=== PATIENT | female | born 1985 | race Caucasian/White ===

== ENCOUNTER 2017-01-23 16:32 | Inpatient (IN) | payer SELFPAY ==
--- NOTE | ~2017-01-23 | PA ---
Unit #: [id number] #: [id number] Patient: NITISH AUSTIN [id number] [facility] [address] [place] [address] [id number] [place] MR#: [id number] NAME: NITISH AUSTIN ROOM: P173 Age: 32 Sex: F Admission Date: 01/23/2017 : 1985 Date of Assessment: 01/24/2017 Attending Physician: Kirsten Pantoja M.D. Admitting Physician: Kirsten Pantoja M.D. Primary Care Physician: Primary Care Physician No PSYCHIATRIC ASSESSMENT DATE OF SERVICE 01/24/2017. IDENTIFYING DATA Ms. Austin is a 31-year-old single white female who is a resident of [place], [place] and was self-referred to the hospital. CHIEF COMPLAINT "I left last month. My medicines are not working." HISTORY OF PRESENT ILLNESS Ms. Austin is a 31-year-old single white female with history of multiple inpatient hospitalization and once again brought herself back to the hospital stating that she left last month and her medicines are not working and "I tried to see my psychiatrist for an emergency." He would not see me due to not having my discharge paperwork. "I tried to see him for suicidal ideations and feeling like I was going to harm myself, but he refused to see me. I'm not sleeping, not eating, not doing well and have been drinking more lately usually Tequila a drink last used today, 2 shots of drinking daily for about 2 to 3 mixed drinks last night. I have been increasing my Klonopin, now using 3 to 4 pills a day and nothing is working to sleep or feel better. I drove myself here today. I got fired from my job and was admitted here." She reports that she gotten another job through, though an issue, is doing fine financially. "I'm currently having a plan to kill myself by overdosing on all of my medications for past week. Things have been getting worse and worse, and I'm trying to see things would get better, but they just are not." She has history of very manipulative behavior and substance abuse, and has been drinking and then has been getting Ambien and Klonopin from the other provider and it appears that she has no issues, but she has been going to her outpatient provider, Scott Moeller and has been paying leon to get prescriptions of Ambien and Klonopin, and has been abusing those and mixing them with alcohol and then she comes to the hospital frequently. When she comes to the hospital, she does not want to leave, when she leaves, she does not follow up with any treatment recommendation including followup as she was strongly encouraged to follow up and she does not follow up and then relapses and has been using those and with excuses once again, she comes in stating that she had the medicines are not working, though, the fact that she has not really active in any treatment program, and rather has been drinking and has relapsed soon after getting out of the hospital and as such, it is not clear what her real motivation expectation from treatment. Unit #: [id number] #: [id number] Patient: NITISH AUSTIN SUBSTANCE ABUSE HISTORY The patient reports history of substance abuse including alcohol and benzodiazepines and cannabis. PAST PSYCHIATRIC HISTORY The patient has had history of multiple inpatient psychiatric hospitalizations including being at [facility], at [facility] and has been seeing Dr. Scott Moeller on an outpatient basis and review of the medical records indicate that she has been getting prescriptions of Klonopin and Ambien, and has been abusing both of those prescriptions. PAST MEDICAL HISTORY No acute or chronic medical illnesses. ALLERGIES No known medication allergies. PERSONAL AND SOCIAL HISTORY A 31-year-old white female who reports that she is single and employed, and lives by herself and has fairly decent social support system. MENTAL STATUS EXAMINATION Young white female who was casually dressed with fair personal hygiene, appears to be in no acute distress or discomfort. She was awake and alert on interaction with intact orientation. Her mood was anxious and depressed with a congruent affect. Her speech was slow and goal directed. She reports having suicidal ideations, but denies any homicidal ideations, and also denies any auditory or visual hallucinations. Her insight and judgment remain significantly impaired. DIAGNOSTIC IMPRESSION Psychiatric: Major depressive disorder, recurrent, moderate, without psychotic features; alcohol dependence, moderate and acute withdrawal; benzodiazepine dependence, moderate. Medical: None. Stressors: Moderate psychosocial stressors. TREATMENT PLAN 1. The patient has presented with history of mood disorder and has been decompensating and will need inpatient hospitalization for safety and stabilization. We will start her back on her home medications. We will adjust the medications and monitor response. 2. Supportive therapy was provided to the patient. 3. Safe, structured, and nourishing environment will be provided. ESTIMATED LENGTH OF STAY 5 to 7 days. ABILITY TO HELP SELF Limited. WILLINGNESS TO HELP SELF The patient appears to be willing to help self. STRENGTHS 1. Communicative. 2. Cooperative. Unit #: [id number] #: [id number] Patient: NITISH AUSTIN PROBLEMS 1. Chronic dysphoric symptoms. 2. Poor social support system. DISCHARGE CRITERIA This will be contingent upon the patient's ability to show resolution of her depression and anxiety and her ability to stay safe to herself, particularly after discharge from the hospital. Dictated by... Kirsten Pantoja M.D. JUANA/johana TD: 01/25/2017 00:16 JOB #: [id number] PSYCHIATRIC ASSESSMENT X Kirsten Pantoja MD X PSYCHIATRIC ASSESSMENT
--- NOTE | ~2017-01-23 | PN ---
Unit #: [id number] #: [id number] Patient: NITISH AUSTIN [id number] [facility] [address] [place] [address] [id number] I MR#: [id number] NAME: NITISH AUSTIN ROOM: 73 Age: 32 Sex: F Admission Date: 01/23/2017 : 1985 Attending Physician: Kirsten Pantoja M.D. Admitting Physician: Kirsten Pantoja M.D. Primary Care Physician: Primary Care Physician Bailey ROSENTHAL PROGRESS NOTES DATE 01/25/2017 DISCUSSION Ms. Austin is a 32-year-old white female who was seen today and chart was reviewed and case was discussed with the staff. She appears to be doing fairly well and has been calm and cooperative and does not appear to be in any acute distress or discomfort and did not voice any concerns or complaints. MENTAL STATUS EXAMINATION Young white female who was casually dressed with fair personal hygiene and appears to be in no acute distress or discomfort. She was awake and alert on interaction with intact orientation. Her mood was anxious with congruent affect. She denies any suicidal or homicidal ideations. Her insight and judgement remains slightly impaired. TREATMENT PLAN 1. Will continue on current medications and treatment protocol and will monitor her response and make further adjustments as needed. 2. Will continue to follow up. Dictated by... Eduar Moses/sarah TD: 01/26/2017 15:04 JOB #: [id number] [facility] PROGRESS NOTES X Kirsten Pantoja MD PROGRESS NOTE
--- NOTE | ~2017-01-23 | HP ---
Unit #: [id number] #: [id number] Patient: ASYA AUSTIN [id number] [facility] [address] [place] [address] [id number] I MR#: [id number] NAME: ASYA AUSTIN ROOM: 73 Age: 32 Sex: F Admission Date: 01/23/2017 : 1985 Attending Physician: Kirsten Pantoja M.D. Admitting Physician: Kirsten Pantoja M.D. Primary Care Physician: Primary Care Physician No HISTORY AND PHYSICAL Asya is a 32 year old admitted to [facility] because of her continued abuse of alcohol. The patient was seen and H and P dated 01/04/17 was reviewed. This is current. No changes. Please see H and P dated 01/04/17. Dictated by... Rachel Austin P.A.-C. for Eduar Jensen/sarah TD: 01/24/2017 16:30 JOB #: [id number] HISTORY AND PHYSICAL X Rachel Austin HISTORY AND PHYSICAL
--- NOTE | ~2017-01-23 | DS ---
Unit #: [id number] #: [id number] [facility]USTIN [id number] [facility] [address] [place] [address] [id number] I MR#: [id number] NAME: NITISH AUSTIN ROOM: 73 Age: 32 Sex: F Admission Date: 01/23/2017 : 1985 Discharge Date: 01/26/2017 Attending Physician: Kirsten Pantoja M.D. Primary Care Physician: Primary Care Physician No DISCHARGE SUMMARY IDENTIFYING DATA Ms. Austin is a 31-year-old, single, white female, who is a resident of [place], [place] and was self-referred to the hospital, who is known to us from previous encounter, and has a history of substance abuse and mood disorder. DISCHARGE DIAGNOSES Psychiatric: 1. Major depressive disorder, recurrent, moderate, without psychotic features. 2. Alcohol dependence, moderate and acute withdrawals. 3. Benzodiazepine dependence, moderate. Medical: None. Stressors: Moderate psychosocial stressors. HISTORY OF PRESENT ILLNESS Please see initial psychiatric evaluation for details. PAST PSYCHIATRIC HISTORY Please see initial psychiatric evaluation for details. PAST MEDICAL HISTORY Please see initial psychiatric evaluation for details. HOSPITAL COURSE The [facility] and was oriented to the hospital environment. Routine p.r.n. medications were initiated, and she was started on the alcohol detox protocol. However, the patient was once again seen to be very manipulative and giving different stories as she refused to fill her prescription up after discharge from the hospital and refused to come to the outpatient treatment program and stated that she was trying to get back with Dr. Scott Moeller, who has been prescribing her Klonopin and Ambien, both of which she has been abusing mixing it with the alcohol and yet refusing to take her antidepressant medication and then keeps on complaining about depression and having suicidal thoughts; however, she stated that Dr. Moeller would not see her because they did not have [facility], which did not make much sense to me, but she was giving me that excuse and reason about her noncompliance with outpatient psychiatric followup; however, the patient's Ambien and Klonopin were both discontinued primarily because of her abuse of those medication, history of substance abuse and her mixing them with alcohol and alcohol detox protocol was initiated. She was detoxed from Klonopin Unit #: [id number] #: [id number] Patient: NORMAN,NITISH and alcohol and she was told that we will make sure the discharge summary and notes are available for Dr. Scott Moeller if that is the reason that she was not able to follow up with, also worth noticing that the patient has no insurance and comes to the hospital on self pay and when I asked how she gets her outpatient visit with Dr. Moeller covered, she tells me that she pays leon, but then she refuses to follow up for outpatient psychiatric treatment. She is not getting any treatment for her depression as she is not taking a mood stabilizer or antidepressant, but yet keeps on complaining insisting about her depression and when I initiated the medication during her previous hospitalization here, she did not bother even to get those prescription filled and decided to use alcohol and mixed it with Klonopin and Ambien after being discharged from the hospital; however, at this point, she is clean and detoxed from all of those controlled substances including Ambien and Klonopin as well as alcohol and will be discharged from the hospital and the patient would like to follow up with Dr. Scott Moeller only we would expect that the patient would not be exposed back to those narcotics and rather be treated for underlying mental illness after proper evaluation. DISCHARGE MEDICATIONS None. DISCHARGE CONDITION Stable. PROGNOSIS Guarded. Dictated by... Eduar Moses/johana TD: 01/26/2017 06:56 JOB #: [id number] CC: Scott Moeller M.D. DISCHARGE SUMMARY X Kirsten Pantoja MD X DISCHARGE SUMMARY
[2017-01-24 09:39] LABS: BASOPHIL# 0.1 X10e3 (0-0.3); EOSINOPHIL# 0.3 X10e3 (0-0.7); EOSINOPHIL% 4.3 % (0.0-7.0); HEMATOCRIT 37.1 % (35.0-45.0); HEMOGLOBIN 12.1 gm/dL (12.0-16.0); LYMPHOCYTE# 1.5 X10e3 (1.0-3.5); LYMPHOCYTE% 23.9 % (17.0-45.0); MEAN CELL VOLUME 80.9 FL (83-96); MEAN CORPUSCULAR HEMOGLOBIN 26.3 PG (28-34); MEAN CORPUSCULAR HGB CONC 32.5 g/dL (30-36); MEAN PLATELET VOLUME 9.5 FL (6.5-11.5); MONOCYTE# 0.6 X10e3 (0-1.0); NEUTROPHIL# 3.8 X10e3 (1.5-7.1); NEUTROPHIL% 61.8 % (40-75); PLATELET COUNT 212 X10e3 (140-420); RED BLOOD COUNT 4.59 X10e (3.90-5.30); RED CELL DISTRIBUTION WIDTH 14.4 % (11.0-15.5); WHITE BLOOD COUNT 6.1 X10e3 (4.0-10.5)
[2017-01-24 09:41] LABS: DIFF IND NO
[2017-01-24 10:11] LABS: THYROID STIMULATING HORMONE 2.68 uIU/ml (0.34-5.60)
[2017-01-24 10:17] LABS: FREE THYROXIN (T4) 0.86 ng/dL (0.58-1.64)
[2017-01-24 10:41] LABS: ALBUMIN SERUM 3.6 g/dL (3.5-5.0); ALKALINE PHOSPHATASE 46 U/L (32-92); ALT (SGPT) 15 U/L (10-40); AST (SGOT) 23 U/L (10-42); BILIRUBIN,TOTAL 0.5 mg/dL (0.2-2.0); BLOOD UREA NITROGEN 19 mg/dL (9-23); BUN/CREATININE RATIO 31.66; CALCIUM SERUM 8.9 mg/dL (8.4-10.2); CARBON DIOXIDE 26 mmol/L (22-31); CHLORIDE 106 mmol/L (100-111); CREATININE SERUM 0.6 mg/dL (0.6-1.4); GLOM FILT RATE Estimated ABOVE60 mL/min (>60); GLUCOSE FASTING 81 mg/dL (70-110); POTASSIUM 4.4 mmol/L (3.5-5.1); PROTEIN TOTAL SERUM 6.4 g/dL (6.0-8.3); SODIUM 141 mmol/L (135-145)
[2017-01-24 12:33] LABS: URINE APPEARANCE CLEAR; URINE BILIRUBIN NEG (NEG); URINE BLOOD NEG (NEG); URINE COLOR DK YELLOW; URINE GLUCOSE NEG (NEG); URINE KETONE NEG (NEG); URINE LEUKOCYTE ESTERASE TRACE (NEG); URINE NITRATE NEG (NEG); URINE PROTEIN NEG (NEG); URINE SPECIFIC GRAVITY 1.032 (1.003-1.035); URINE UROBILINOGEN 0.2 MG/DL (NEG)
[2017-01-24 12:35] LABS: U HYALINE CASTS AUWI 0-2 /[LPF]; URBCS1 AUWI 0-2 /[HPF] (0-2); URINE BACTERIA AUWI 2+ (NEGATIVE); URINE SQUAMOUS EPITHELIAL CELL MOD /[HPF]
[2017-01-24 13:01] LABS: AMPHETAMINE NEG (NEG); BARBITURATES NEG (NEG); BENZODIAZEPINES POS (NEG); COCAINE NEG (NEG); MARIJUANA NEG (NEG); OPIATES POS (NEG); TRICYCLIC ANTIDEPRESSANTS NEG (NEG); U METHADONE NEG (NEG)
== END 2017-01-26 09:35 | disposition home or self-care (01) | DRG 885 ==
LOC: P1E 16:32
PROVIDERS: Psychiatry & Neurology Psychiatry
DX: F33.1 Major depressive disorder, recurrent, moderate (principal); F13.20 Sedative, hypnotic or anxiolytic dependence, uncomplicated; F10.239 Alcohol dependence with withdrawal, unspecified
CPT/HCPCS: 80053; 80307; 81003; 84439; 84443; 84703; 85025; 86592